=== PATIENT | male | born 1930 | race Caucasian/White ===

== ENCOUNTER 2021-02-23 08:47 | Emergency (ER) | payer OTHER ==
[2021-02-23] MEDS ORDERED: Boostrix 0.5 ML (Tdap) VIAL ONE (10:49)
== END 2021-02-23 12:08 ==
LOC: CSHERS 08:47
DX: S01.21XA Laceration without foreign body of nose, initial encounter (principal); Z23 Encounter for immunization; I10 Essential (primary) hypertension; E03.9 Hypothyroidism, unspecified; I25.10 Atherosclerotic heart disease of native coronary artery without angina pectoris; Z79.899 Other long term (current) drug therapy; Z79.82 Long term (current) use of aspirin; W19.XXXA Unspecified fall, initial encounter
CPT/HCPCS: 70450; 70486; 72125; 90471; 90715; 93005; 94760

== ENCOUNTER 2022-02-09 09:12 | Emergency (ER) | payer OTHER ==
[2022-02-09 09:57] LABS: INR-International Normal Ratio 1.1; PTT 29.1 sec (22.0-33.0); Prothrombin Time 11.6 sec (9.5-12.1)
[2022-02-09 09:59] LABS: Hemoglobin 11.2 g/dL (13.5-17.5); Mean Corpuscular Hemoglobin 30.6 pg (27.0-33.0); Mean Corpuscular Volume 92.6 fl (81.2-95.1); Mean Platelet Volume 10.7 fl (7.4-10.4); Platelet Count 133 10x3/uL (150-450); RBC Distribution Width 14.2 % (11.5-14.5); Red Blood Cell (RBC) Count 3.66 10x6/uL (4.32-5.72)
[2022-02-09 10:02] LABS: ALT (SGPT) 14 U/L (8-55); AST (SGOT) 25 U/L (5-34); Albumin 3.5 g/dL (3.4-4.8); Alkaline Phosphatase 70 U/L (40-110); Anion Gap 13 mmol/L (10-20); BUN (Urea Nitrogen) 23 mg/dL (8.4-25.7); Bilirubin, Total 0.8 mg/dL (0.2-1.2); Calc. Creatinine Clearance 0 mL/min (70-130); Calcium 8.1 mg/dL (7.8-10.44); Carbon Dioxide 19 mmol/L (23-31); Chloride 101 mmol/L (98-107); Estimated GFR 51; Globulin 3.3 g/dL (2.4-3.5); Glucose 118 mg/dL (83-110); MDiff Complete? YES; Potassium 4.1 mmol/L (3.5-5.1); Protein, Total 6.8 g/dL (5.8-8.1); Sodium 129 mmol/L (136-145)
[2022-02-09 10:37] LABS: Band 10 % (5-11); Lymphocytes 4 % (21-51); Monocytes 3 % (0-10); Neutrophil 83 % (42-75)
[2022-02-09 10:39] LABS: Platelet Morphology Comment Appears Decreased; RBC Morphology Normal
[2022-02-09 10:42] LABS: Bilirubin Neg (Negative); Blood, Urine 250 (Negative); Clarity Cloudy (Clear); Glucose, Urine (Dipstick) Normal (Negative); Ketone, Urine 5 mg/dL (Negative); Leukocyte 25 (Negative); Nitrite Negative (Negative); Protein, Urine (Dipstick) 30 mg/dl (Neg-Trace); pH, Urine 6.5 (5.0-9.0)
[2022-02-09 10:58] LABS: RBC/HPF Greater than 50 HPF (0-3); Squamous Epithelial 0-3 HPF (0-3); WBC/HPF 0-3 HPF (0-3)
[2022-02-09 10:59] LABS: Bacteria/HPF None Seen HPF (None Seen)
[2022-02-09 11:01] LABS: SARS-CoV-2 NAA Rapid Test Not Detected (NotDetected)
[2022-02-09] MEDS ORDERED: cefTRIAXone\\ROCEPHIN 1 GM VIAL ONE (11:13)
[2022-02-09] MEDS ORDERED: Acetaminophen 500 MG TAB ONE (11:13)
== END 2022-02-09 13:48 ==
LOC: CSHERS 09:12
DX: N30.01 Acute cystitis with hematuria (principal); E86.0 Dehydration; I25.10 Atherosclerotic heart disease of native coronary artery without angina pectoris; I10 Essential (primary) hypertension; E03.9 Hypothyroidism, unspecified; Z79.899 Other long term (current) drug therapy; Z79.82 Long term (current) use of aspirin; Z20.822 Contact with and (suspected) exposure to COVID-19
CPT/HCPCS: 36416; 51701; 80053; 81003; 81015; 83605; 85025; 85610; 85730; 87040; 87086; 93005; 94760; 96374; J0696; U0002

== ENCOUNTER 2022-05-17 05:12 | Inpatient (IN) | payer OTHER ==
[2022-05-17] MEDS ORDERED: Vancomycin HCl 500 MG VIAL ONE (05:29)
[2022-05-17] MEDS ORDERED: Vancomycin 1 GM VIAL ONE (05:30)
[2022-05-17 05:54] LABS: #Eosinphils 0.1 10x3/uL (0.0-0.5); #Monocytes 0.2 10x3/uL (0.0-1.1); %Basophils 0.2 % (0.0-2.0); %Eosinophils 0.6 % (0.0-6.0); %Lymphocytes 2.6 % (18.0-47.0); %Monocytes 1.6 % (0.0-10.0); %Neutrophils 94.4 % (40.0-75.0); Mean Corpuscular Hemoglobin 30.2 pg (27.0-33.0); Mean Corpuscular Volume 91.5 fl (81.2-95.1); Mean Platelet Volume 10.2 fl (7.4-10.4); Platelet Count 121 10x3/uL (150-450); RBC Distribution Width 14.6 % (11.5-14.5); Red Blood Cell (RBC) Count 3.31 10x6/uL (4.32-5.72); White Blood Cell (WBC) Count 12.7 10x3/uL (3.5-10.5)
[2022-05-17 06:01] LABS: INR-International Normal Ratio 1.2; Prothrombin Time 13.4 sec (9.5-12.1)
[2022-05-17 06:02] LABS: SARS-CoV-2 NAA Rapid Test Not Detected (NotDetected)
[2022-05-17 06:10] LABS: ALT (SGPT) 18 U/L (8-55); AST (SGOT) 67 U/L (5-34); Albumin 3.1 g/dL (3.4-4.8); Alkaline Phosphatase 46 U/L (40-110); Anion Gap 15 mmol/L (10-20); BUN (Urea Nitrogen) 26 mg/dL (8.4-25.7); Bilirubin, Total 0.6 mg/dL (0.2-1.2); Calc. Creatinine Clearance 0 mL/min (70-130); Calcium 7.7 mg/dL (7.8-10.44); Carbon Dioxide 15 mmol/L (23-31); Chloride 107 mmol/L (98-107); Estimated GFR 58; Globulin 2.9 g/dL (2.4-3.5); Glucose 115 mg/dL (83-110); Magnesium 1.7 mg/dL (1.6-2.6); Potassium 3.8 mmol/L (3.5-5.1); Sodium 133 mmol/L (136-145)
[2022-05-17 06:37] LABS: CKMB 9.1 ng/mL (0-6.6)
[2022-05-17] MEDS ORDERED: Aspirin 325 MG TAB ONE (06:51)
[2022-05-17 09:42] LABS: CKMB 13.9 ng/mL (0-6.6)
[2022-05-17 10:35] LABS: Bilirubin Neg (Negative); Blood, Urine 250 (Negative); Clarity Cloudy (Clear); Glucose, Urine (Dipstick) Normal (Negative); Ketone, Urine 5 mg/dL (Negative); Leukocyte 500 (Negative); Nitrite Negative (Negative); Protein, Urine (Dipstick) 30 mg/dl (Neg-Trace); Urobilinogen Normal mg/dL (Less than 2)
[2022-05-17 10:50] LABS: Bacteria/HPF 2+ HPF (None Seen); Mucous/LPF 1+ LPF (<2+)
[2022-05-17] MEDS ORDERED: Cefepime 2 GM VIAL ONE (11:21)
[2022-05-17 14:09] LABS: Troponin I 0.221 ng/mL (< 0.028)
[2022-05-17] MEDS ORDERED: Acetaminophen 325 MG TAB PO PRN (15:56)
[2022-05-17] MEDS ORDERED: Ondansetron PF 4 MG/2 ML Vial IVP PRN (15:56)
[2022-05-17] MEDS ORDERED: Senokot S 8.6-50 MG TAB PO PRN (15:56)
[2022-05-17] MEDS ORDERED: Ondansetron ODT 4 MG TAB PO PRN (15:56)
[2022-05-17] MEDS ORDERED: Communication Order-Pharmacy FS ONE (16:02)
[2022-05-17] MEDS ORDERED: Electrolyte Replacement Protocol FS SCH (16:15)
[2022-05-17 16:51] LABS: Troponin I 0.196 ng/mL (< 0.028)
[2022-05-17 19:38] LABS: SARS-CoV-2 NAA Rapid Test Not Detected (NotDetected)
[2022-05-17 20:24] LABS: Troponin I 0.191 ng/mL (< 0.028)
[2022-05-17] MEDS ORDERED: Atorvastatin Calcium 40 MG TAB PO SCH (22:30)
[2022-05-17] MEDS ORDERED: Metoprolol Tartrate 50 MG TAB PO SCH (22:30)
[2022-05-17] MEDS ORDERED: Famotidine 20 MG TAB PO SCH (22:30)
[2022-05-17] MEDS ORDERED: Terazosin HCl 5 MG CAP PO SCH (22:30)
[2022-05-17] MEDS ORDERED: Magnesium 2 GM/50 ML(in water) 2 GM in Premix Bag 1 BAG IVPB SCH (23:30)
[2022-05-17] MEDS: Famotidine 20 MG TAB PO SCH (23:55)
[2022-05-17] MEDS: Sodium Chloride 0.9% 1,000 ML IV SCH (23:56)
[2022-05-18 04:59] LABS: #Monocytes 0.5 10x3/uL (0.0-1.1); #Neutrophils 9.8 10x3/uL (1.5-8.4); %Basophils 0.3 % (0.0-2.0); %Eosinophils 0.2 % (0.0-6.0); %Lymphocytes 9.3 % (18.0-47.0); %Monocytes 4.1 % (0.0-10.0); %Neutrophils 85.4 % (40.0-75.0); Hemoglobin 10.3 g/dL (13.5-17.5); Mean Corpuscular HGB CONC 33.2 g/dL (32.0-36.0); Mean Corpuscular Hemoglobin 30.1 pg (27.0-33.0); Mean Corpuscular Volume 90.6 fl (81.2-95.1); Mean Platelet Volume 10.5 fl (7.4-10.4); Platelet Count 129 10x3/uL (150-450); RBC Distribution Width 14.7 % (11.5-14.5); Red Blood Cell (RBC) Count 3.42 10x6/uL (4.32-5.72); White Blood Cell (WBC) Count 11.5 10x3/uL (3.5-10.5)
[2022-05-18 05:17] LABS: ALT (SGPT) 42 U/L (8-55); AST (SGOT) 132 U/L (5-34); Albumin 3.1 g/dL (3.4-4.8); Alkaline Phosphatase 53 U/L (40-110); Anion Gap 16 mmol/L (10-20); BUN (Urea Nitrogen) 26 mg/dL (8.4-25.7); Bilirubin, Total 0.6 mg/dL (0.2-1.2); Calc. Creatinine Clearance 51 mL/min (70-130); Carbon Dioxide 16 mmol/L (23-31); Chloride 106 mmol/L (98-107); Estimated GFR 69; Globulin 3.4 g/dL (2.4-3.5); Glucose 97 mg/dL (83-110); Potassium 3.9 mmol/L (3.5-5.1); Protein, Total 6.5 g/dL (5.8-8.1); Sodium 134 mmol/L (136-145)
[2022-05-18 05:28] LABS: CK (CPK) 5545 U/L (30-200)
[2022-05-18] MEDS: Levothyroxine Sodium 50 MCG TAB PO SCH (05:34)
[2022-05-18] MEDS ORDERED: Vancomycin HCl 1 GM in Sodium Chloride 0.9% 250 ML 250 ML IVPB SCH (06:00)
[2022-05-18] MEDS: Sodium Chloride 0.9% 1,000 ML IV SCH ×2 (10:10→15:11)
[2022-05-18] MEDS: Metoprolol Tartrate 50 MG TAB PO SCH ×2 (10:16→21:43)
[2022-05-18] MEDS: Aspirin 81 mg Enteric Coated Tablet PO SCH (10:16)
[2022-05-18] MEDS ORDERED: Terazosin HCl 5 MG CAP PO SCH (21:00)
[2022-05-18] MEDS ORDERED: Atorvastatin Calcium 40 MG TAB PO SCH (21:00)
[2022-05-18] MEDS: Doxycycline 100 MG CAP PO SCH (21:43)
[2022-05-18] MEDS: Famotidine 20 MG TAB PO SCH (21:43)
[2022-05-19] MEDS: Cephalexin 500 MG CAP PO SCH ×3 (00:01→12:50)
[2022-05-19] MEDS: Levothyroxine Sodium 50 MCG TAB PO SCH (05:22)
[2022-05-19 07:15] LABS: #Eosinphils 0.2 10x3/uL (0.0-0.5); #Monocytes 0.5 10x3/uL (0.0-1.1); %Basophils 0.4 % (0.0-2.0); %Eosinophils 2.1 % (0.0-6.0); %Neutrophils 77.9 % (40.0-75.0); Hemoglobin 9.8 g/dL (13.5-17.5); Mean Corpuscular HGB CONC 32.1 g/dL (32.0-36.0); Mean Corpuscular Hemoglobin 29.6 pg (27.0-33.0); Mean Corpuscular Volume 92.1 fl (81.2-95.1); Mean Platelet Volume 10.6 fl (7.4-10.4); Platelet Count 123 10x3/uL (150-450); RBC Distribution Width 14.8 % (11.5-14.5); Red Blood Cell (RBC) Count 3.31 10x6/uL (4.32-5.72); White Blood Cell (WBC) Count 7.7 10x3/uL (3.5-10.5)
[2022-05-19 07:40] LABS: ALT (SGPT) 36 U/L (8-55); AST (SGOT) 77 U/L (5-34); Albumin 2.8 g/dL (3.4-4.8); Alkaline Phosphatase 45 U/L (40-110); Anion Gap 10 mmol/L (10-20); BUN (Urea Nitrogen) 18 mg/dL (8.4-25.7); Bilirubin, Total 0.4 mg/dL (0.2-1.2); CK (CPK) 1565 U/L (30-200); Calc. Creatinine Clearance 60 mL/min (70-130); Calcium 7.8 mg/dL (7.8-10.44); Carbon Dioxide 20 mmol/L (23-31); Chloride 106 mmol/L (98-107); Estimated GFR 82; Globulin 3.1 g/dL (2.4-3.5); Glucose 79 mg/dL (83-110); Potassium 3.4 mmol/L (3.5-5.1); Protein, Total 5.9 g/dL (5.8-8.1); Sodium 133 mmol/L (136-145)
[2022-05-19] MEDS ORDERED: Potassium Chloride 20 MEQ TAB PO SCH (08:00)
[2022-05-19] MEDS ORDERED: Lisinopril 5 MG TAB PO SCH (09:00)
[2022-05-19] MEDS ORDERED: Furosemide 20 MG TAB PO SCH (09:00)
[2022-05-19] MEDS: Doxycycline 100 MG CAP PO SCH (09:29)
[2022-05-19] MEDS: Metoprolol Tartrate 50 MG TAB PO SCH (09:29)
[2022-05-19] MEDS: Famotidine 20 MG TAB PO SCH ×3 (09:30→09:32)
[2022-05-19] MEDS: Aspirin 81 mg Enteric Coated Tablet PO SCH (09:30)
[2022-05-19 13:27] VITALS: BP 131/62; TEMP 98.6
[2022-05-19 14:15] VITALS: BMI 24.8
== END 2022-05-19 15:00 | disposition home or self-care (01) | DRG 602 ==
LOC: CSHERS 05:12 → EEVIPCON 05:12 → CSHTELE 17:57 → OBSVTOIN 05-18 16:23
PROVIDERS: ADMIT Internal Medicine; ATTEND Family Medicine
DX: L03.116 Cellulitis of left lower limb (principal); I21.4 Non-ST elevation (NSTEMI) myocardial infarction; I50.32 Chronic diastolic (congestive) heart failure; N39.0 Urinary tract infection, site not specified; M62.82 Rhabdomyolysis; I25.10 Atherosclerotic heart disease of native coronary artery without angina pectoris; E78.5 Hyperlipidemia, unspecified; E03.9 Hypothyroidism, unspecified; R53.81 Other malaise; N40.0 Benign prostatic hyperplasia without lower urinary tract symptoms; I11.0 Hypertensive heart disease with heart failure; R91.8 Other nonspecific abnormal finding of lung field; R41.81 Age-related cognitive decline; Z20.822 Contact with and (suspected) exposure to COVID-19; Z79.82 Long term (current) use of aspirin; Z95.5 Presence of coronary angioplasty implant and graft; Z79.890 Hormone replacement therapy; Z79.899 Other long term (current) drug therapy; Z79.02 Long term (current) use of antithrombotics/antiplatelets; I27.20 Pulmonary hypertension, unspecified
CPT/HCPCS: 36415; 36416; 71045; 80053; 81003; 81015; 82550; 82553; 83605; 83735; 83880; 84443; 84484; 85025; 85610; 87040; 93005; 93306; 94760; 96365; 96366; 96372; 96375; G0378; J0692; J1650; J3370; J3475; J7050